=== PATIENT | male | born 1985 | race Caucasian/White ===

== ENCOUNTER → 2022-09-04 13:30 | Outpatient (BNVA) | payer SELFPAY | PROVIDERS: Visit Provider Physician Assistant | DX: Z02.79 Encounter for issue of other medical certificate (principal) ==

== ENCOUNTER → 2024-10-15 07:48 | Outpatient (BNVA) | payer SELFPAY | PROVIDERS: Visit Provider Internal Medicine | DX: Z02.79 Encounter for issue of other medical certificate (principal) ==

== ENCOUNTER 2025-09-28 08:19 | Outpatient (REF) | payer OTHER, SELFPAY ==
--- NOTE | ~2025-09-28 | XR_ITS ---
EXAMINATION: XR HIP, RIGHT CLINICAL INFORMATION: M25.551 - Pain in right hip COMPARISON: None available. TECHNIQUE: AP pelvis, and 2 views of the right hip. FINDINGS: No fracture, dislocation, or suspicious bone lesion. There is normal alignment of the right hip. Moderate superior joint space loss, with mild subchondral sclerosis of the acetabulum, and small subcapital osteophytes in keeping with moderate osteoarthrosis. Normal femoral head contour without evidence of AVN. There are mild degenerative changes in the left hip joint. The SI joints appear normal. There is no soft tissue abnormality. XR/XR hip RT min 2V IMPRESSION: Moderate osteoarthrosis of the right hip joint. Electronically signed by: Aditya Olea MD 09/28/2025 10:48 AM SRIDHAR STEINER
--- OUTSIDE RECORDS SUMMARY | 2025-09-29 08:40 | XMS_ITS | Patient Health Record ---
Author Organization [facility] Address [address] [place] [address] Care Team Providers Care General Worker Name Role Phone [email or web address] Primary Care Provider Allergies Allergen (clinical drug ingredient) Drug/Non Drug Allergy documented on EMR Reaction Allergy Type Onset Date Status seasonal (uncoded) Unknown Allergy A ctive Reason For Referral Reason right hip joint pain Please evaluate and treat Diagnosis 1 Right hip pain (M25. 551) Referral Organization [facility] Referring Provider First Name DIO Referring Provider Last Name [facility] Referring Provider Speciality Internal edicine Referred Provider Specialty Orthopedic S urgery General Notes Please call the magen ent to schedule the appointment, Encounter created, Lottie Wiggins 07/14/2025 07:33:07 AM > Referral Priority Routine Reason snoring Please christiano luate and treat Diagnosis 1 Snoring (R06.83) Referral Organization [facility] Referring Provider First Name DIO Referring Provider Last Name [facility] Referring Provider Speciality Internal edicine Referred Provider [...] 30 day(s) 08/29/2022 Not-Taking Ergocalciferol 1.25 MG (75528 UT) 1 capsule Orally weekly; Duration: 30 [...] Status Risk Notes Problem Vitamin D deficiency (67072743) Vitamin D deficiency, unspecified (E55.9) Active confirmed Problem Obesity due to excess calories (510635562) Other obesity due to excess calories (E66.09) Active confirmed Problem Mixed hyperlipidemia (142811259) Mixed hyperlipidemia (E78.2) Active confirmed Problem Hyperlipidemia (43970779) Hyperlipidemia, unspecified (E78.5) Active confirmed Problem Bipolar disorder (49456848) Bipolar disorder, unspecified (F31.9) Active confirmed Problem Generalized anxiety disorder (00074276) Generalized anxiety disorder (F41.1) Active confirmed Problem Chronic pain (71796243) Other chronic pain (G89.29) Active confirmed Problem Seasonal allergic rhinitis (816034011) Other seasonal allergic rhinitis (J30.2) Active confirmed Problem Gastro-esophageal reflux disease without esophagitis (259294801) Gastro-esophageal reflux disease without esophagitis (K21.9) Active confirmed Problem Pain of right shoulder region (finding) (1560621358) Pain in right shoulder (M25.511) Active confirmed Problem Pain in left foot (423790527699195) Pain in left foot (M79.672) Active confirmed Problem Sexually transmitted infectious disease (9145646) Encounter for screening for infections with a predominantly sexual mode of transmission (Z11.3) Active confirmed Problem Essential hypertension (62345889) Essential (primary) hypertension (I10) Active confirmed Problem Pain of testes (71969758) Testicular pain, unspecified (N50.819) Active confirmed Problem Body mass index 35.00 to 39.99 (200792177524778) Body mass index [BMI] 36.0-36.9, adult (Z68.36) Active confirmed Problem Gastroesophageal reflux disease without esophagitis (079892231) Gastroesophageal reflux disease without esophagitis (K21.9) Active confirmed Vital Signs Heart Rate 70 /min 07/12/2025 Temperature 98.5 degrees Fahrenheit 07/12/2025 Blood pressure diastolic 72 mm Hg 07/12/2025 Oximetry 99 % 07/12/2025 Height 64 in 07/12/2025 Blood pressure systolic 130 mm Hg 07/12/2025 Weight 205.9 lbs 07/12/2025 BMI 35.34 kg/m2 07/12/2025 Encounters Encounter Location Date Provider Diagnosis [address] [place] [address] 07/12/2025 DIO SPENCER Annual physical exam Z00.00 ; Essential (primary) hypertension I10 ; Mixed hyperlipidemia E78.2 ; Gastro-esophageal reflux disease without esophagitis K21.9 ; Other obesity due to excess calories E66.09 ; Dietary counseling and surveillance Z71.3 ; Encounter for immunization Z23 and Cannabis use, unspecified, uncomplicated F12.[address] [place] [address] 08/09/[address] [place] [address] 07/08/[address] [place] [address] 07/14/2025 DIO SPENCER Assessments Encounter Date Diagnosis (ICD Code) Assessment Notes Treatment Notes Treatment Clinical Notes Section Notes 07/12/2025 Essential (primary) hypertension (ICD-10 - I10) [...] to date on age specific screening. 07/12/2025 Annual physical exam (ICD-10 - Z00.00) [...] Hip Right-Min 2 Vws Portable 07/23 Albumin/Creatinine Ratio,[id number] Lipid Panel-[id number] 07/12/2025 Comp. Metabolic Panel [id number] 2024 Future Test Test Name Order Date LIPID PANEL 08/29/2022 Insurance Providers Payer Name Payer Address Payer Phone Subscriber Number Group Number Insured Name Patient Relationship to Insured Coverage Start Date Coverage End Date [facility] [address] [place] [id number] Donnie Galvan Self - patient is the insured 3 Medical (General) History Medical History History ICD Code Generalized anxiety disorder Bipolar disorder Acid reflux hypertension Surgical History Surgery Date(Month/Year) thumb surgery
--- OUTSIDE RECORDS SUMMARY | 2025-09-29 08:40 | XMS_ITS | Patient Health Record ---
Author Organization [facility] Address [address] [place] [address] Care Team Providers Care Pumpman Name Role Phone Mckenna Storey Primary Care Provider iDana Juarez Unavailable [phone] Reason For Referral No Information Social History [...] Insured Coverage Start Date Coverage End Date [facility] [address] [place] [address] [phone] [id number] Donnie Galvan Self - patient is the insured Medical (General) History Surgical History Surgery Date(Month/Year)
== END 2025-09-28 08:20 | disposition home or self-care (01) ==
LOC: HO.HOSX 08:19
PROVIDERS: Visit Provider Physician Assistant
DX: M16.11 Unilateral primary osteoarthritis, right hip (principal)
CPT/HCPCS: 73502

== ENCOUNTER 2025-09-28 10:35 | Outpatient (AMB) | payer OTHER, SELFPAY ==
--- NOTE | 2025-09-28 10:38 | MHC.OFFVIS ---
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 Patient referred by PCP for right hip pain, previous x-rays revealed mild osteoarthritis. Today patient reports his pain has been present for a while, he states in 2019 he had x-rays and was diagnosed with arthritis in 2021. No previous treatment. He mentions a recent lacrosse tournament that he was unable to finish due to his pain. His pain is located at the lateral aspect of hip and radiates into his groin. He complains of constant pain making it difficult to perform activities. Denies injury. Finds no relief with Tylenol or at home stretching. Allergies No Known Allergies Allergy (Verified 09/28/25 10:45) Medication List - Last Reconciled 09/28/25 by Ene Kam PA-C atorvastatin 20 mg PO DAILY lisinopril 5 mg PO DAILY HPI HPI SHEET METAL PRODUCTION WORKER-RT hip pain: Details: 39 yo male presents to the office today for right hip pain. He is active, plays lacrosse, he coaches and runs and finds he has pain with these activities. He states the pain causes significant limitations. He cannot bend the leg or hip to get onto the ground. He states he has pain at night while sleeping, he wakes up due to the pain. 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 [facility] Medical History (Updated 09/28/25 @ 11:26 by Ene Kam PA-C) Hyperlipidemia Hypertension Surgical History (Updated 09/28/25 @ 10:59 by Ene Kam PA-C) H/O thumb surgery Social History (Updated 09/28/25 @ 10:54 by Malena Stone [facility]) Patient Tobacco Use Status: Never used Tobacco Substance Use Type: Marijuana Current occupation: construction Review of Systems Const All systems reviewed & are unremarkable except as noted in HPI and below Physical Exam Vital Signs: BMI result Body Mass Index 32.6 Const General: cooperative and no acute distress Orientation/consciousness: patient oriented x3 Resp Effort & Inspection: normal respiratory effort and able to speak in complete sentences Cardio Peripheral pulses: Peripheral pulses 2+ throughout Neuro General: patient oriented x3 Extrem Other: Right hip pain with range of motion and hip flexion. Negative straight leg raise. Neurovascularly intact. Results Reviewed Results Reviewed: X-rays of the right hip obtained in the office today and reviewed by me show moderate arthritis through the right hip Assessment & Plan Assessment & Plan (1) Arthritis of right hip: Code(s): M16.11 - Unilateral primary osteoarthritis, right hip Category: Medical Plan: I discussed with the patient the extent of his arthritis and options available. Given his age we would like to hold off on hip arthroplasty for as long as we can. I recommend a course of physical therapy to work on some strengthening exercises and also a steroid injection under fluoroscopy of the right hip. He is content with this plan and both orders were placed in the office today. Once his injection is complete I recommend he see us back for a follow up 6-8 weeks after the injection to discuss the next step in his treatment if injection was not successful. Orders: Orders XR hip RT min 2V Today M25.551 - Pain in right hip FL Guided Asp Inj Major Jt RT Today M16.11 - Unilateral primary osteoarthritis, right hip Medications: New celecoxib (Celebrex) 200 mg PO BID 60 caps 3RF 30 days Coding Level of Care Code New Pt Level 3 (59006) Complex EM visit Add On G2211 Diagnoses Arthritis of right hip M16.11
[2025-09-28 10:46] VITALS: BMI 32.6
--- OUTSIDE RECORDS SUMMARY | 2025-09-28 12:22 | XMS_ITS | Patient Health Record ---
Author Organization [facility] Address [address] [place] [address] Care Team Providers Care Cracker Sprayer Name Role Phone Mckenna Storey Primary Care Provider Diana Juarez Unavailable [phone] Reason For Referral No Information Social History Tobacco Use: Social History Observation Description Date Details (start date - stop date) Never Smoker NA - NA Tobacco Use/Smoking Question Answer Notes Are you a: nonsmoker Additional Findings: Tobacco Non-User Current no n-smoker Alcohol Screen Question Answer Notes Did you have a drink containing alcohol in the p ast year? No Points 0 Interpretation Negative Tobacco use other than smoking: Question Answer Notes Are you an other tobacco user? No Plan Of Treatment Pending Test Test Name Order Date X ray : Foot, left 3V 01/05/2019 X ray : Foot, right 3V 01/05/2019 Insurance Providers Payer Name Payer Address Payer Phone Subscriber Number Group Number Insured Name Patient Relationship to Insured Coverage Start Date Coverage End Date [facility] [address] [place] [address] [phone] [id number] Donnie Galvan Self - patient is the insured Medical (General) History Surgical History Surgery Date(Month/Year)
--- OUTSIDE RECORDS SUMMARY | 2025-09-28 12:22 | XMS_ITS | Patient Health Record ---
Author Organization [facility] [employer] [facility] Address [address] [place] [address] Care Team Providers Care Corporate Director Of Pharmacy Name Role Phone PALAKPavelDIO Primary Care Provider [phone] Allergies Allergen (clinical drug ingredient) Drug/Non Drug Allergy documented on EMR Reaction Allergy Type Onset Date Status seasonal (uncoded) Unknown Allergy A ctive Reason For Referral Reason right hip joint pain Please evaluate and treat Diagnosis 1 Right hip pain (M25. 551) Referral Organization [facility] Referring Provider First Name DIO Referring Provider Last Name [facility] Referring Provider Speciality Internal edicine Referred Provider Specialty Orthopedic S urgery General Notes Please call the magen ent to schedule the appointment, Encounter created, Lottie Wiggins 07/14/2025 07:33:07 AM > Referral Priority Routine Reason snoring Please christiano luate and treat Diagnosis 1 Snoring (R06.83) Referral Organization [facility] Referring Provider First Name DIO Referring Provider Last Name [facility] Referring Provider Speciality Internal edicine Referred Provider Specialty Sleep Medici ne General Notes Please call the magen ent to schedule the appointment, Encounter Feliciano jauregui Charmain 07/14/2025 07:43:43 AM > Referral Priority Routine Medications Medication SIG (Take, Route, Frequency, Duration) Notes Start Date End Date Status Fluticasone Propionate 50 MCG/ACT SPRAY SPRAY 1 SPRAY INTO EACH NOSTRIL EVERY DAY FOR 30 DAYS; Duration: 30 Not-Taking Levocetirizine Dihydrochloride 5 MG 1 tablet in the evening Orally Once a day; Duration: 30 day(s) 08/29/2022 Not-Taking Omeprazole 20 MG TAKE 1 CAPSULE BY MOUTH 30 MINUTES BEFORE MORNING MEAL EVERY DAY FOR 90 DAYS; Duration: 90 Active Atorvastatin Calcium 20 MG TAKE 1 TABLET BY MOUTH EVERY DAY FOR 30 DAYS; Duration: 90 Active Lisinopril 5 MG 1 tablet Orally Once a day; Duration: 30 days 07/08/2022 Active Zoloft 25 MG 1 tablet Orally Once a day; Duration: 30 day(s) 08/29/2022 Not-Taking Ergocalciferol 1.25 MG (30806 UT) 1 capsule Orally weekly; Duration: 30 day(s) Not-Taking Paxlovid (300/100) 20 x 150 MG & 10 x 100MG 3 tablets Orally Twice a day; Duration: 5 days 07/12/2024 Not-Taking ZyrTEC Allergy 10 MG 1 tablet Orally Onc e a day; Duration: 30 days 04/01/2023 Not-Taking Immunizations Vaccine Route Administration Date Status Comme nts Tdap IM Intramuscular 07/12/2025 Administered Social History Tobacco Use: Social History Observation Description Date Details (start date - stop date) Never Smoker NA - NA Tobacco Use/Smoking Question Answer Notes Are you a nonsmoker Alcohol Screen (Audit-C) Question Answer Notes Did you have a drink containing alcohol in the p ast year? No Points 0 Interpretation Negative Problems Problem Type SNOMED Code ICD Code Onset Dates Problem Status W/U Status Risk Notes Problem Vitamin D deficiency (18445748) Vitamin D deficiency, unspecified (E55.9) Active confirmed Problem Obesity due to excess calories (997543797) Other obesity due to excess calories (E66.09) Active confirmed Problem Mixed hyperlipidemia (494052019) Mixed hyperlipidemia (E78.2) Active confirmed Problem Hyperlipidemia (33846423) Hyperlipidemia, unspecified (E78.5) Active confirmed Problem Bipolar disorder (06084578) Bipolar disorder, unspecified (F31.9) Active confirmed Problem Generalized anxiety disorder (10884738) Generalized anxiety disorder (F41.1) Active confirmed Problem Chronic pain (79424226) Other chronic pain (G89.29) Active confirmed Problem Seasonal allergic rhinitis (506547711) Other seasonal allergic rhinitis (J30.2) Active confirmed Problem Gastro-esophageal reflux disease without esophagitis (976746279) Gastro-esophageal reflux disease without esophagitis (K21.9) Active confirmed Problem Pain of right shoulder region (finding) (7780282360) Pain in right shoulder (M25.511) Active confirmed Problem Pain in left foot (889007260819450) Pain in left foot (M79.672) Active confirmed Problem Sexually transmitted infectious disease (6869233) Encounter for screening for infections with a predominantly sexual mode of transmission (Z11.3) Active confirmed Problem Essential hypertension (09999466) Essential (primary) hypertension (I10) Active confirmed Problem Pain of testes (68667403) Testicular pain, unspecified (N50.819) Active confirmed Problem Body mass index 35.00 to 39.99 (943874443109706) Body mass index [BMI] 36.0-36.9, adult (Z68.36) Active confirmed Problem Gastroesophageal reflux disease without esophagitis (642753558) Gastroesophageal reflux disease without esophagitis (K21.9) Active confirmed Vital Signs Heart Rate 70 /min 07/12/2025 Temperature 98.5 degrees Fahrenheit 07/12/2025 Blood pressure diastolic 72 mm Hg 07/12/2025 Oximetry 99 % 07/12/2025 Height 64 in 07/12/2025 Blood pressure systolic 130 mm Hg 07/12/2025 Weight 205.9 lbs 07/12/2025 BMI 35.34 kg/m2 07/12/2025 Encounters Encounter Location Date Provider Diagnosis [address] [place] [address] 07/12/2025 DIO SPENCER Annual physical exam Z00.00 ; Essential (primary) hypertension I10 ; Mixed hyperlipidemia E78.2 ; Gastro-esophageal reflux disease without esophagitis K21.9 ; Other obesity due to excess calories E66.09 ; Dietary counseling and surveillance Z71.3 ; Encounter for immunization Z23 and Cannabis use, unspecified, uncomplicated F12.[address] [place] [address] 08/09/[address] [place] [address] 07/08/[address] [place] [address] 07/14/2025 DIO SPENCER Assessments Encounter Date Diagnosis (ICD Code) Assessment Notes Treatment Notes Treatment Clinical Notes Section Notes 07/12/2025 Annual physical exam (ICD-10 - Z00.00) Donnie is 39 years old gentleman with hypertension, hyperlipidemia, acid reflux, obesity, generalized anxiety disorder is here today for her annual physical. He was seen 2 years ago and he is not taking lisinopril, atorvastatin and Zoloft at this point. He is just taking famotidine. He complains of pain in the right hip joint and also complained of daytime sleepiness and snoring at night. Plan is as follows Hypertension. Blood pressure running high today. Started on lisinopril 5 mg daily and recheck blood pressure in 4 weeks. EKG is normal sinus rhythm at 65 bpm with no acute ST or T wave changes, no bundle branch blocks, normal intervals. Mixed hyperlipidemia. Advised to start atorvastatin 20 mg daily and check lipid panel. Snoring. He is obese and he scored 7 on STP-Bang for evaluation tool. He is given referral to sleep medicine for sleep study Right hip joint pain. Previous x-ray a few years ago positive for mild osteoarthritis. Given referral to orthopedics for further evaluation. Obesity. Diet restrictions discussed and advised to lose roughly 6 pounds a month. Screening blood work ordered. He is also given Tdap because he stepped on ear ring a few days ago. Up to date on age specific screening. 07/12/2025 Essential (primary) hypertension (ICD-10 - I10) Donnie is 39 years old gentleman with hypertension, hyperlipidemia, acid reflux, obesity, generalized anxiety disorder is here today for her annual physical. He was seen 2 years ago and he is not taking lisinopril, atorvastatin and Zoloft at this point. He is just taking famotidine. He complains of pain in the right hip joint and also complained of daytime sleepiness and snoring at night. Plan is as follows Hypertension. Blood pressure running high today. Started on lisinopril 5 mg daily and recheck blood pressure in 4 weeks. EKG is normal sinus rhythm at 65 bpm with no acute ST or T wave changes, no bundle branch blocks, normal intervals. Mixed hyperlipidemia. Advised to start atorvastatin 20 mg daily and check lipid panel. Snoring. He is obese and he scored 7 on STP-Bang for evaluation tool. He is given referral to sleep medicine for sleep study Right hip joint pain. Previous x-ray a few years ago positive for mild osteoarthritis. Given referral to orthopedics for further evaluation. Obesity. Diet restrictions discussed and advised to lose roughly 6 pounds a month. Screening blood work ordered. He is also given Tdap because he stepped on ear ring a few days ago. Up to date on age specific screening. 07/12/2025 Mixed hyperlipidemia (ICD-10 - E78.2) Donnie is 39 years old gentleman with hypertension, hyperlipidemia, acid reflux, obesity, generalized anxiety disorder is here today for her annual physical. He was seen 2 years ago and he is not taking lisinopril, atorvastatin and Zoloft at this point. He is just taking famotidine. He complains of pain in the right hip joint and also complained of daytime sleepiness and snoring at night. Plan is as follows Hypertension. Blood pressure running high today. Started on lisinopril 5 mg daily and recheck blood pressure in 4 weeks. EKG is normal sinus rhythm at 65 bpm with no acute ST or T wave changes, no bundle branch blocks, normal intervals. Mixed hyperlipidemia. Advised to start atorvastatin 20 mg daily and check lipid panel. Snoring. He is obese and he scored 7 on STP-Bang for evaluation tool. He is given referral to sleep medicine for sleep study Right hip joint pain. Previous x-ray a few years ago positive for mild osteoarthritis. Given referral to orthopedics for further evaluation. Obesity. Diet restrictions discussed and advised to lose roughly 6 pounds a month. Screening blood work ordered. He is also given Tdap because he stepped on ear ring a few days ago. Up to date on age specific screening. 07/12/2025 Gastro-esophageal reflux disease without esophagitis (ICD-10 - K21.9) Donnie is 39 years old gentleman with hypertension, hyperlipidemia, acid reflux, obesity, generalized anxiety disorder is here today for her annual physical. He was seen 2 years ago and he is not taking lisinopril, atorvastatin and Zoloft at this point. He is just taking famotidine. He complains of pain in the right hip joint and also complained of daytime sleepiness and snoring at night. Plan is as follows Hypertension. Blood pressure running high today. Started on lisinopril 5 mg daily and recheck blood pressure in 4 weeks. EKG is normal sinus rhythm at 65 bpm with no acute ST or T wave changes, no bundle branch blocks, normal intervals. Mixed hyperlipidemia. Advised to start atorvastatin 20 mg daily and check lipid panel. Snoring. He is obese and he scored 7 on STP-Bang for evaluation tool. He is given referral to sleep medicine for sleep study Right hip joint pain. Previous x-ray a few years ago positive for mild osteoarthritis. Given referral to orthopedics for further evaluation. Obesity. Diet restrictions discussed and advised to lose roughly 6 pounds a month. Screening blood work ordered. He is also given Tdap because he stepped on ear ring a few days ago. Up to date on age specific screening. 07/12/2025 Other obesity due to excess calories (ICD-10 - E66.09) Donnie is 39 years old gentleman with hypertension, hyperlipidemia, acid reflux, obesity, generalized anxiety disorder is here today for her annual physical. He was seen 2 years ago and he is not taking lisinopril, atorvastatin and Zoloft at this point. He is just taking famotidine. He complains of pain in the right hip joint and also complained of daytime sleepiness and snoring at night. Plan is as follows Hypertension. Blood pressure running high today. Started on lisinopril 5 mg daily and recheck blood pressure in 4 weeks. EKG is normal sinus rhythm at 65 bpm with no acute ST or T wave changes, no bundle branch blocks, normal intervals. Mixed hyperlipidemia. Advised to start atorvastatin 20 mg daily and check lipid panel. Snoring. He is obese and he scored 7 on STP-Bang for evaluation tool. He is given referral to sleep medicine for sleep study Right hip joint pain. Previous x-ray a few years ago positive for mild osteoarthritis. Given referral to orthopedics for further evaluation. Obesity. Diet restrictions discussed and advised to lose roughly 6 pounds a month. Screening blood work ordered. He is also given Tdap because he stepped on ear ring a few days ago. Up to date on age specific screening. 07/12/2025 Dietary counseling and surveillance (ICD-10 - Z71.3) Donnie is 39 years old gentleman with hypertension, hyperlipidemia, acid reflux, obesity, generalized anxiety disorder is here today for her annual physical. He was seen 2 years ago and he is not taking lisinopril, atorvastatin and Zoloft at this point. He is just taking famotidine. He complains of pain in the right hip joint and also complained of daytime sleepiness and snoring at night. Plan is as follows Hypertension. Blood pressure running high today. Started on lisinopril 5 mg daily and recheck blood pressure in 4 weeks. EKG is normal sinus rhythm at 65 bpm with no acute ST or T wave changes, no bundle branch blocks, normal intervals. Mixed hyperlipidemia. Advised to start atorvastatin 20 mg daily and check lipid panel. Snoring. He is obese and he scored 7 on STP-Bang for evaluation tool. He is given referral to sleep medicine for sleep study Right hip joint pain. Previous x-ray a few years ago positive for mild osteoarthritis. Given referral to orthopedics for further evaluation. Obesity. Diet restrictions discussed and advised to lose roughly 6 pounds a month. Screening blood work ordered. He is also given Tdap because he stepped on ear ring a few days ago. Up to date on age specific screening. 07/12/2025 Encounter for immunization (ICD-10 - Z23) Donnie is 39 years old gentleman with hypertension, hyperlipidemia, acid reflux, obesity, generalized anxiety disorder is here today for her annual physical. He was seen 2 years ago and he is not taking lisinopril, atorvastatin and Zoloft at this point. He is just taking famotidine. He complains of pain in the right hip joint and also complained of daytime sleepiness and snoring at night. Plan is as follows Hypertension. Blood pressure running high today. Started on lisinopril 5 mg daily and recheck blood pressure in 4 weeks. EKG is normal sinus rhythm at 65 bpm with no acute ST or T wave changes, no bundle branch blocks, normal intervals. Mixed hyperlipidemia. Advised to start atorvastatin 20 mg daily and check lipid panel. Snoring. He is obese and he scored 7 on STP-Bang for evaluation tool. He is given referral to sleep medicine for sleep study Right hip joint pain. Previous x-ray a few years ago positive for mild osteoarthritis. Given referral to orthopedics for further evaluation. Obesity. Diet restrictions discussed and advised to lose roughly 6 pounds a month. Screening blood work ordered. He is also given Tdap because he stepped on ear ring a few days ago. Up to date on age specific screening. 07/12/2025 Cannabis use, unspecified, uncomplicated (ICD-10 - F12.90) Donnie is 39 years old gentleman with hypertension, hyperlipidemia, acid reflux, obesity, generalized anxiety disorder is here today for her annual physical. He was seen 2 years ago and he is not taking lisinopril, atorvastatin and Zoloft at this point. He is just taking famotidine. He complains of pain in the right hip joint and also complained of daytime sleepiness and snoring at night. Plan is as follows Hypertension. Blood pressure running high today. Started on lisinopril 5 mg daily and recheck blood pressure in 4 weeks. EKG is normal sinus rhythm at 65 bpm with no acute ST or T wave changes, no bundle branch blocks, normal intervals. Mixed hyperlipidemia. Advised to start atorvastatin 20 mg daily and check lipid panel. Snoring. He is obese and he scored 7 on STP-Bang for evaluation tool. He is given referral to sleep medicine for sleep study Right hip joint pain. Previous x-ray a few years ago positive for mild osteoarthritis. Given referral to orthopedics for further evaluation. Obesity. Diet restrictions discussed and advised to lose roughly 6 pounds a month. Screening blood work ordered. He is also given Tdap because he stepped on ear ring a few days ago. Up to date on age specific screening. Plan Of Treatment Pending Test Test Name Order Date LIPID PANEL 08/01/2022 Xray: Hip Right-Min 2 Vws Portable 07/23 Albumin/Creatinine Ratio,[id number] Lipid Panel-[id number] 07/12/2025 Comp. Metabolic Panel [id number] 2024 Future Test Test Name Order Date LIPID PANEL 08/29/2022 Insurance Providers Payer Name Payer Address Payer Phone Subscriber Number Group Number Insured Name Patient Relationship to Insured Coverage Start Date Coverage End Date [facility] [address] [facility] [place] [phone] [id number] Donnie Galvan Self - patient is the insured 3 Medical (General) History Medical History History ICD Code Generalized anxiety disorder Bipolar disorder Acid reflux hypertension Surgical History Surgery Date(Month/Year) thumb surgery
== END 2025-09-28 13:45 | disposition home or self-care (01) ==
LOC: HO.HOS 10:35
PROVIDERS: Visit Provider Physician Assistant
DX: M16.11 Unilateral primary osteoarthritis, right hip (principal)
CPT/HCPCS: 99204; G2211

== ENCOUNTER → 2025-09-28 10:37 | Outpatient (BNV) | payer OTHER, SELFPAY | PROVIDERS: Visit Provider Radiology Diagnostic Radiology | DX: M16.11 Unilateral primary osteoarthritis, right hip (principal) | CPT/HCPCS: 73502 ==